=== PATIENT | male | born 1960 | race Caucasian/White ===

== ENCOUNTER 2017-07-12 06:00 | Day surgery (SDC) | payer OTHER ==
[~2017-07-12 06:00] MED LIST: ASA81 MG; INSULINA; LIPITOR40 MG; LISINOPRIL5 MG
[2017-07-12] MEDS ORDERED: PERCOCET 5-3251 EACH PO (07:38)
[2017-07-12] MEDS ORDERED: ZOFRAN ODT4 MG PO (07:38)
[2017-07-12] MEDS ORDERED: MIRALAX17 GM PO (07:38)
[2017-07-12] MEDS ORDERED: NEURONTIN300 MG PO (07:38)
== END 2017-07-12 12:50 | disposition home or self-care (01) ==
LOC: CIR.AMB 06:00
DX: K43.6 Other and unspecified ventral hernia with obstruction, without gangrene (principal); K42.0 Umbilical hernia with obstruction, without gangrene

== ENCOUNTER 2020-02-14 17:29 | Emergency (ER) | payer OTHER ==
[~2020-02-14] VITALS: Ht 175.3 cm; Wt 108.9 kg
[~2020-02-14 17:29] MED LIST changes: +MIRALAX17 GM PO; +NEURONTIN300 MG PO; +PERCOCET 5-3251 EACH PO; +ZOFRAN ODT4 MG PO
[2020-02-14] MEDS ORDERED: ZETIA10 MG (18:06)
== END 2020-02-14 19:33 | disposition home or self-care (01) ==
LOC: ER 17:29
DX: B34.9 Viral infection, unspecified (principal); Z20.828 Contact with and (suspected) exposure to other viral communicable diseases

== ENCOUNTER 2020-03-16 15:02 | Outpatient (CLI) | payer OTHER ==
[~2020-03-16 15:02] MED LIST changes: +ZETIA10 MG
== END 2020-03-16 18:00 | disposition home or self-care (01) ==
LOC: PPH VACUNA 15:02
DX: Z23 Encounter for immunization (principal)

== ENCOUNTER 2020-12-19 18:26 | Emergency (ER) | payer OTHER ==
[~2020-12-19] VITALS: Ht 175.3 cm; Wt 113.4 kg
== END 2020-12-19 20:26 | disposition home or self-care (01) ==
LOC: ER 18:26
DX: Z20.822 Contact with and (suspected) exposure to COVID-19 (principal); J00 Acute nasopharyngitis [common cold]; R09.81 Nasal congestion

== ENCOUNTER 2021-07-21 07:07 | Outpatient (CLI) | payer OTHER | END 2021-07-21 07:11 | disposition home or self-care (01) | LOC: RX STUDY 07:07 | PROVIDERS: ATTEND Internal Medicine Gastroenterology | DX: K57.13 Diverticulitis of small intestine without perforation or abscess with bleeding (principal) ==

== ENCOUNTER 2021-09-01 15:21 | Emergency (ER) | payer OTHER ==
[~2021-09-01] VITALS: Ht 175.3 cm; Wt 112.0 kg
== END 2021-09-01 17:19 | disposition home or self-care (01) ==
LOC: ER 15:21
DX: U07.1 COVID-19 (principal); E11.9 Type 2 diabetes mellitus without complications; Z79.4 Long term (current) use of insulin; I10 Essential (primary) hypertension

== ENCOUNTER 2021-09-02 09:37 | Outpatient (CLI) | payer OTHER | END 2021-09-02 10:44 | disposition home or self-care (01) | LOC: ASH CLINIC 09:37 | PROVIDERS: ATTEND General Practice | DX: Z23 Encounter for immunization (principal); U07.1 COVID-19 ==

== ENCOUNTER 2022-06-15 10:50 | Emergency (ER) | payer OTHER ==
[~2022-06-15] VITALS: Ht 175.3 cm; Wt 116.1 kg
[2022-06-15] MEDS ORDERED: ZESTRIL10 M1 PO (11:00)
[2022-06-15] MEDS ORDERED: INSULIN SYRING1 EA29 (11:01)
--- NOTE | 2022-06-15 11:02 | NUR ---
PTE ALERTA,ESTABLE Y ORIENTADO.DANICA REFIERE QUE DESDE EL LUNES COMENZO CON LA DIFICULTAD RESPIRATORIA
== END 2022-06-15 20:18 | disposition designated cancer center or children's hospital (05) ==
LOC: ER 10:50 → MEDJ 16:41 → ER 20:18
DX: I50.9 Heart failure, unspecified (principal); I21.3 ST elevation (STEMI) myocardial infarction of unspecified site; I24.9 Acute ischemic heart disease, unspecified; J22 Unspecified acute lower respiratory infection; J45.909 Unspecified asthma, uncomplicated; I10 Essential (primary) hypertension; I25.10 Atherosclerotic heart disease of native coronary artery without angina pectoris; I31.39 Other pericardial effusion (noninflammatory); Z20.822 Contact with and (suspected) exposure to COVID-19; E11.9 Type 2 diabetes mellitus without complications; Z79.84 Long term (current) use of oral hypoglycemic drugs

== ENCOUNTER 2024-12-01 02:10 | Emergency (ER) | payer OTHER ==
[~2024-12-01] VITALS: Ht 175.3 cm; Wt 106.1 kg
[~2024-12-01 02:10] MED LIST changes: +INSULIN SYRING1 EA29; +ZESTRIL10 M1 PO
[2024-12-01] MEDS ORDERED: LIPITOR40 M1 (02:20)
[2024-12-01] MEDS ORDERED: ZESTORETIC 10-1 EACH (02:20)
[2024-12-01] MEDS ORDERED: NEURONTIN600 M1 (02:20)
[2024-12-01] MEDS ORDERED: ADULT LOW DOSE81 M1 (02:20)
[2024-12-01] MEDS ORDERED: TOPROL XL50 M1 (02:20)
[2024-12-01] MEDS ORDERED: MORPHINE SULFATE 4 MG/ML VIAL IV STA (02:48)
[2024-12-01] MEDS ORDERED: DIATRIZOATE MEGLUMINE, SODIUM 30 ML BOTTLE ONE (02:48)
[2024-12-01] MEDS ORDERED: 0.9 % SODIUM CHLORIDE 1,000 ML IV ONE (03:00)
[2024-12-01 03:21] LABS: BASO % 0.3 % (0.1-1.2); EOS # 0.09 (0.04-0.54); EOS % 0.9 % (0.7-7.0); LYMPH # 3.14 (1.18-3.74); LYMPH % 30.5 % (19.3-53.1); MEAN PLATELET VOLUME 9.90 fl (9.4-12.4); MONO # 0.73 (0.24-0.82); MONO % 7.1 % (4.7-12.5); NEUT # 6.29 (1.56-6.13); NEUT % 60.9 % (34.0-71.1); RED CELL DISTRIBUTION WIDTH 13.6 % (11.6-14.4)
[2024-12-01 03:33] LABS: INR 1.07
[2024-12-01 03:37] LABS: ALT/SGPT 40.0 U/L (12-78); AST/SGOT 27.0 U/L (15-37); BILIRUBIN TOTAL 0.51 mg/dL (0.3-1.2); BUN CREA RATIO 14.0 (7.0-25.0); CREATININE SERUM 1.47 mg/dL (0.70-1.30); GFR 48.23; GLOBULINA 3.4 G/DL (2.4-3.5); GLUCOSE FASTING 80.0 mg/dL (65-100); OSMOLALITY SERUM 281.0 MOSM/KG (275-295)
[2024-12-01] MEDS ORDERED: METRONIDAZOLE/SODIUM CHLORIDE 500 MG/100 ML PIGGYBACK IV STA (07:17)
[2024-12-01] MEDS ORDERED: CIPROFLOXACIN IN 5 % DEXTROSE 400 MG/200 ML PIGGYBAG IV STA (07:17)
[2024-12-01] MEDS ORDERED: METRONIDAZOLE/SODIUM CHLORIDE 500 MG/100 ML PIGGYBACK IV ONE (07:34)
[2024-12-01] MEDS ORDERED: CIPROFLOXACIN IN 5 % DEXTROSE 400 MG/200 ML PIGGYBAG IV ONE (07:34)
[2024-12-01] MEDS ORDERED: METRONIDAZOLE500 MG PO (07:35)
[2024-12-01] MEDS ORDERED: CIPRO500 MG PO (07:35)
[2024-12-01] MEDS ORDERED: ACETAMINOPHEN 500 MG GEL..CAP PO ONE (07:37)
[2024-12-01 07:44] LABS: URINE APPEARANCE Clear; URINE BILIRRUBIN Negative (NEGATIVE); URINE BLOOD Negative; URINE COLOR Yellow; URINE KETONE Negative (NEGATIVE); URINE LEUKOCYTE Negative; URINE NITRATE Negative; URINE PROTEIN Negative (NEGATIVE); URINE UROBILINOGEN 0.2 E.U./dl
[2024-12-01 07:54] LABS: URINE BACTERIA 2.4 uL (0.0-1933); URINE CAST 0.43 uL (0.0-1.40); URINE EPITHELIAL CELLS 0.9 uL (0.0-38.8); URINE GLUCOSE 500 MG/DL (NEGATIVE); URINE RBC 1.0 uL (0.0-20.8); URINE WBC 0.4 uL (0.0-23.2)
== END 2024-12-01 10:01 | disposition home or self-care (01) ==
LOC: ER 02:37
PROVIDERS: General Practice
DX: R10.32 Left lower quadrant pain (principal); K57.90 Diverticulosis of intestine, part unspecified, without perforation or abscess without bleeding; R10.9 Unspecified abdominal pain; I10 Essential (primary) hypertension; E11.9 Type 2 diabetes mellitus without complications; Z79.4 Long term (current) use of insulin
CPT/HCPCS: 36415; 74177; Q9965